=== PATIENT | male | born 1980 | race Caucasian/White ===

== ENCOUNTER 2019-07-29 11:12 | Outpatient (CLI) | payer OTHER, SELFPAY ==
--- NOTE | ~2019-07-29 | XR_ITS ---
XR chest 2V DATE: 07/29/2019 11:25 INDICATION: Acute upper respiratory infection TECHNIQUE: PA and lateral views COMPARISON: None FINDINGS: Normal heart size. No hilar or mediastinal enlargement. No pulmonary infiltrate or consolid ation, pleural effusion or pulmonary vascular congestion or pneumothorax. Included skeletal structures are unremarkable. IMPRESSION: No active cardiopulmonary disease Reviewed, dictated and finalized at location B.
== END 2019-07-29 11:13 | disposition home or self-care (01) ==
PROVIDERS: PCP Family Medicine; Visit Provider Family Medicine
DX: J06.9 Acute upper respiratory infection, unspecified (principal)
CPT/HCPCS: 71046

== ENCOUNTER 2021-05-06 09:16 | Outpatient (CLI) | payer OTHER, SELFPAY ==
--- NOTE | ~2021-05-06 | US_ITS ---
EXAMINATION: US soft tissue head and neck DATE: 05/06/2021 09:46 INDICATION: Cervicalgia TECHNIQUE: Multiple grayscale and Doppler ultrasound images of the region of concern at the right nec k from the submandibular region through the thyroid were obtained. COMPARISON: None FINDINGS: Normal appearance to the right submandibular gland which measures 4.1 x 2.1 x 4.1 cm. Visualized port ion of the right thyroid also appears normal. No pathologically enlarged cervical lymphadenopathy or other abnormal masses or fluid collections identified. IMPRESSION: 1. Normal study. No pathologically enlarged lymphadenopathy or abnormal masses or fluid collections a t the of concern at the right neck and submandibular region. Reviewed, dictated and finalized at location B. [employer] IMPRESSION: 1. Normal study. No pathologically enlarged lymphadenopathy or abnormal masses or fluid collections at the of concern at the right neck and submandibular elizabeth on.
== END 2021-05-06 09:17 | disposition home or self-care (01) ==
LOC: CHSIMG 09:19
PROVIDERS: PCP Family Medicine; Visit Provider Nurse Practitioner Family
DX: M54.2 Cervicalgia (principal); R22.0 Localized swelling, mass and lump, head; R22.1 Localized swelling, mass and lump, neck
CPT/HCPCS: 76536

== ENCOUNTER 2022-01-26 07:44 | Outpatient (CLI) | payer OTHER, SELFPAY ==
--- NOTE | ~2022-01-26 | CT_ITS ---
EXAMINATION: CT abdomen pelvis wo con DATE: 01/26/2022 08:01 INDICATION: Right lower quadrant abdominal pain. Hernia. TECHNIQUE: Computed tomography (CT) of the abdomen and pelvis was performed without intravenous contr ast. The dose-length product was 1211.33 mGy-cm. Automated exposure control and iterative reconstruct ion technique were employed. COMPARISON: None. FINDINGS: Lung bases are unremarkable. Heart size normal. Moderate size hiatal hernia. There is abnor mal thickening of the gastric wall. No significant pleural or pericardial effusion. No significant va scular abnormality. Appendix is mildly prominent measuring up to 10 mm, although there is no signific ant surrounding inflammatory change. There is gas throughout the appendix. The liver, spleen, pancreas, adrenal glands and kidneys are unremarkable. No renal stones or hydronep hrosis. No acute osseous abnormality. No free air or free fluid. No lymphadenopathy. Bladder is unrem arkable. No abnormal pelvic masses or fluid collections. Nonobstructive bowel gas pattern. IMPRESSION: 1. Mild prominence of the appendix measuring 10 mm. No significant surrounding inflammatory change. T his may represent a normal variant, although appendicitis is not excluded. Clinically correlate. 2: Thickening of the gastric wall with moderate size hiatal hernia. Cannot exclude gastritis. Reviewed, dictated and finalized at location B. IMPRESSION: 1. Mild prominence of the appendix measuring 10 mm. No significant surrounding inflammatory change. This may represent a normal variant, although appendicitis is not excluded. Clinically correlate. 2: Thickening of the gastric wall with moderate size hiatal hernia. Cannot exc lude gastritis.
== END 2022-01-26 07:45 | disposition home or self-care (01) ==
LOC: CHSIMG 07:46
PROVIDERS: PCP Family Medicine; Visit Provider Family Medicine
DX: R10.9 Unspecified abdominal pain (principal)
CPT/HCPCS: 74176

== ENCOUNTER 2022-02-23 00:26 | Day surgery (SDC) | payer OTHER, SELFPAY ==
[2022-02-20 08:42] VITALS: BMI 37.0
--- NOTE | 2022-02-20 08:49 | SUR.PREOP ---
Report to the Outpatient Waiting Room, entrance under the green pavilion located off [facility], at time _1130 on date _02/23/22 . Planned Procedure Time: _1330 . Time changes happen often and if your time is changed the preop area will call you the afternoon before. - You and your visitor will be asked to self-screen and do not enter if you have any COVID symptoms. - We encourage only one visitor and NO visitors under age 16 are allowed at this time. Your visitor will receive communication by the phone number that is given day of service. - The patient visitor is requested to social distance or may leave the building when not with patient due to restrictions. - A mask is required within the hospital. Patients may have clear liquids (water, carbonated beverages, clear teas, apple juice) until 3 hours prior to surgery with a maximum of 20 ounces. - No food from midnight until time of surgery - Infants may have breast milk until 4 hours before surgery, formula 6 hours prior to surgery. - Children will be allowed to drink immediately following surgery. If applicable, please bring a bottle or sippy cup to assist with drinking. Juice, water, soda, and popsicles are readily available. For infants on formula, please bring formula the day of surgery. Pacifiers are allowed. Take the following medications with a SIP of water the morning of surgery: _ALPRAZOLAM Medications to discontinue per physician ____N/A Date to take last dose____N/A Please no make-up, nail afghan, hairspray, perfume, deodorant, or body powder the day of surgery. No jewelry (including any body piercings) or valuables the day of surgery, leave them at home. Please take a shower or bath the night before, or the morning of, surgery with an antibacterial soap. Wear comfortable, loose fitting clothing. Children are encouraged to wear pajamas. HIBICLENS SHOWER AM OF SURGERY - Jewelry must be removed prior to entering the operating room. Rings and piercings that are not removed may be cut off. - The hospital will not accept responsibility for valuables. - Please leave all valuables, including medications, at home the day of surgery. If you are going home after surgery, a licensed sanitation truck driver must drive you home. - NO public transportation without another adult. - We recommend that an adult stay with you for 24 hours following discharge. - We also recommend that you do not drive, make important decision, drink alcoholic beverages, or take any drugs that were not prescribed by your health care provider for at least 24 hours after your discharge time. For Pediatric surgeries, we recommend two adults accompany the child home. Follow any additional instructions given to you from your surgeon. If you or anyone in your household have experienced Covid symptoms in the past week, please notify your surgeon or the nurse liaison at the phone number below for possible testing. Telephone instructions given to _CORTEZ KENNEDY and asked if any additional questions and then verbalized understanding. Patient advised to call surgeon office or pre surgery nurse liaison [phone] if any additional questions.
--- NOTE | 2022-02-22 16:13 | WPDANESEPPF ---
Anes - Initial Pre Proc Eval Procedure: Operation Date: 02/23/22 13:30 Proposed Procedures p Laparoscopic Appendectomy - Susan Bangura MD Date/Time: 02/22/22 16:13 Surgeon: Susan Bangura MD Pre Op Diagnosis: chronic appendicitis Patient Data Age: 41 Gender: M Height: 1.85 m Weight: 127.27 kg Allergies Allergy/AdvReac Type Severity Reaction Status Date / Time No Known Allergies Allergy Verified 02/23/22 12:09 Home Medications Medication Instructions Recorded Confirmed Type alprazolam 1 mg tablet 1 mg PO PRN 01/31/22 02/20/22 History esomeprazole magnesium 20 mg 20 mg PO DAILY 01/31/22 02/20/22 History capsule,delayed release (Nexium) valacyclovir 500 mg tablet 500 mg PO EVERY OTHER DAY 01/31/22 02/20/22 History Patient hx anesthesia problems: none Family hx anesthesia problems: none Results Review: All pre-operative results and documents have been reviewed as part of the pre-operative evaluation. [facility] Past Medical History Medical History (Updated 02/22/22 @ 16:14 by Derrick Glover MD) Cigarette nicotine dependence Fever blister MIKE (generalized anxiety disorder) GERD (gastroesophageal reflux disease) Obesity Skull fracture Social History Social History Smoking status: Former smoker Tobacco type: cigarettes Smoking end date: 04/30/19 Additional smoking assessment comments: cigarettes 1ppd x 10 years Alcohol intake: current Drinks per week: 5 Living arrangements: alone Additional living arrangements comments: Single 1 Child. Additional occupation/education comments: [employer] Spiritual care concerns: No Anes - Eval Final PreProcedure Day of Procedure 02/22/22 16:13 Patient weight: obese Heart: regular rate and rhythm Lungs: clear to auscultation and normal air movement Airway: Mallampati scale class II Neurological: alert and oriented Last oral intake: >/= 8 hours ASA classification: II Emergent: no Anesthetic plan: proceed Anesthesia type and monitoring: general ETT Results Review: All pre-operative results and documents have been reviewed as part of the pre-operative evaluation. Informed Consent: The patient's anesthetic plan and its attendant risks and benefits were discussed with the patient/family/POA. Questions were solicited and answers provided to the satisfaction of the patient/family/POA.
[2022-02-23] VITALS (8 sets, daily range): BP systolic 101–154; BP diastolic 61–94; PULSE 40–75; RESP 9–15; TEMP 36.3–36.4; O2SAT 95–100
[2022-02-23] MEDS: LACTATED RINGERS 1,000 ML 30 ML IV CONT ×2 (11:58→15:02)
[2022-02-23] MEDS: KETOROLAC 15 MG/ML VIAL (*BKC) IV PUSH (12:00)
--- NOTE | 2022-02-23 12:04 | WPDHPUPDATE1 ---
History and Physical Update Update Date/Time: 02/23/22 12:05 History and Physical has been reviewed, including an updated exam of the patient. There are NO changes in the patient's condition. Risks, benefits, and alternatives have been discussed and questions answered. Patient agrees to proceed with procedure.
[2022-02-23] MEDS: ceFAZolin 3 GM/D5W 100 ML 100 ML IVPB (14:01)
[2022-02-23] MEDS: metroNIDAZOLE 500 MG/ISO 100ML 500 MG/100 ML BAG 100 MG IVPB (14:17)
[2022-02-23] MEDS: BUPIVACAINE/EPINEPHRINE 0.25% 50 ML VIAL 30 ML INFILTRATE (14:38)
--- NOTE | 2022-02-23 15:08 | W.PM.PROC2 ---
Procedure Note - Detailed Date of Procedure 02/23/22 Pre-op Diagnosis chronic appendicitis Post-op Diagnosis Same Procedure Performed laparoscopic appendectomy Surgeon Susan Bangura MD Anesthesia General Indications 41 y/o M presenting to office with chronic appendicitis. Findings chronic appendicitis no evidence of perforation Description of Procedure The patient was taken to the operating room and placed in the supine position. After adequate induction of general anesthesia, the patient was prepped and draped in the normal sterile fashion. A time-out was then done to verify the patient's identity, as well as the procedure being performed. I began by making a 5 mm incision in the infraumbilical region, through this a Veress needle was placed in the peritoneal cavity. CO2 gas was then insufflated and after adequate pneumoperitoneum was achieved the Veress needle was removed. Then placed a 5 mm Optiview trocar under direct visualization into the peritoneal cavity. I then insufflated through this trocar site and the endoscope was placed into the trocar. Under direct visualization, placed 2 further 5 mm suprapubic port as well as an additional 12 mm port in the left lower abdomen. At this point identified the cecum, I retracted the cecum both medially and superiorly allowing me to expose the appendix. The appendix was noted to be moderately dilated, injected, and inflamed. The appendix was noted to be very adherent to the right lateral sidewall as well as the ileum. I was able to bluntly dissect the appendix from these adhesions. I then was able to locate the base of the appendix with the cecum. I created a window with the [place] dissector between the appendix itself and the mesoappendix. I then transected the mesoappendix with a white vascular staple load x 2. The Endo-SATYA was then reloaded with a blue staple load and I transected the base of the appendix. Once the specimen was completely detached, an endo-pouch was placed into the 12 mm port site and the specimen was removed through the endo-pouch. The appendiceal specimen will be sent to pathology for further review. I then copiously irrigated the right lower quadrant. Hemostasis was noted at both staple lines no other pathology was seen in this area. I then moved the camera to the suprapubic port to check our its port of entry. No iatrogenic injury or other pathology was noted in the upper abdomen. I then closed the 12 mm port site with a Fausto code and 0 Vicryl suture under direct visualization. At this point, the abdomen was desufflated and all ports were removed. All port sites were closed with 4 Monocryl subcuticular suture. Dermabond was placed on all wounds. The patient tolerated the procedure well and was extubated in the operating room postop. He will be sent to the recovery room in stable condition. Estimated Blood Loss 10 Drains No Packing No Pathology Yes Complications No immediate complications Condition Stable Disposition PACU [facility] Billing Surgery - Charge Forward: Surgery Billing
[2022-02-23] MEDS: ONDANSETRON INJ 4 MG/2 ML VIAL IV PUSH (15:26)
[2022-02-23] MEDS: SCOPOLAMINE 1.5 MG PATCH TRANSDERM (15:49)
[2022-02-23] MEDS: HALOPERIDOL LACTATE 5 MG/ML VIAL IV PUSH (15:50)
--- NOTE | 2022-02-23 16:05 | SUR.PHASEII ---
PATIENT DIAPHORETIC, NAUSEATED; DR. JETER CALLED FOR ANTI-EMETICS; BP AND HR LOWER THAN BASELINE; PATIENT'S HOB LOWERED IN RECLINER. COOL COMPRESSES TO FACE/NECK. DR. JETER CALLED AGAIN RE: LOWER BP'S AND LOWER HR'S IN 40'S. PT MORE ALERT NOW, SAYS NAUSEA IS BETTER. BP'S IMPROVING. NO INTERVENTION FOR HR'S IN 40'S PER DR. JETER. PATIENT SITTING UP NOW PER HIS REQUEST; DRINKING WATER AND EATING CRACKERS. DAD AT BEDSIDE, VERY CONCERNED. DAD REASSURED THAT DOCTOR IS AWARE AND THAT PATIENT IS IMPROVING.
[2022-02-23] MEDS: oxyCODONE HCL (*CRX) 5 MG TAB IR PO (17:01)
--- NOTE | 2022-02-23 17:05 | SUR.PHASEII ---
GUILLERMO MELTON NOTIFIED RE: PATIENT'S CURRENT BP'S AND HR'S WHICH ARE IMPROVED BUT SLIGHTLY LOWER THAN PREOP VITAL SIGNS. PATIENT AWAKE, ALERT, DROWSY BUT ABLE TO WALK TO BATHROOM INDEPENDENTLY WITHOUT DIFFICULTY. Ben MELTON OKAY'D PATIENT TO GO HOME.
== END 2022-02-23 17:25 | disposition home or self-care (01) ==
PROVIDERS: PCP Family Medicine; Visit Provider Surgery
PROC: 0DTJ4ZZ Resection of Appendix, Percutaneous Endoscopic Approach (ICD-10-PCS; CPT 44970; principal; 2022-02-23 13:30)
DX: K36 Other appendicitis (principal); K21.9 Gastro-esophageal reflux disease without esophagitis; F41.1 Generalized anxiety disorder; E66.9 Obesity, unspecified; Z68.36 Body mass index [BMI] 36.0-36.9, adult; Z87.891 Personal history of nicotine dependence
CPT/HCPCS: 44970; 88304; A9270; J0330; J0690; J1100; J1630; J1885; J2250; J2405; J2704; J2710; J3010; J7030; J7120

== ENCOUNTER 2022-10-02 01:15 | Day surgery (SDC) | payer OTHER, SELFPAY ==
--- NOTE | 2022-09-27 14:09 | PC.NURSE ---
Report to the Outpatient Waiting Room, entrance under the green pavilion located off [facility], at time _1000_ on date _10/02/22_. Planned Procedure Time: _1200__. Time changes happen often and if your time is changed the preop area will call you the afternoon before. - You and your visitor will be asked to self-screen and do not enter if you have any COVID symptoms. - A mask is optional within the hospital at this time. Patients may have clear liquids (water, carbonated beverages, clear teas, apple juice) until 3 hours prior to surgery with a maximum of 20 ounces. - No food from midnight until time of surgery - Infants may have breast milk until 4 hours before surgery, formula 6 hours prior to surgery. - Children will be allowed to drink immediately following surgery. If applicable, please bring a bottle or sippy cup to assist with drinking. Juice, water, soda, and popsicles are readily available. For infants on formula, please bring formula the day of surgery. Pacifiers are allowed. Take the following medications with a SIP of water the morning of surgery: _no meds _ DO NOT STOP ANY OF YOUR OTHER PRESCRIPTION MEDICATIONS PRIOR TO SURGERY ?EXCEPT THE FOLLOWING Medications to discontinue per physician __vitamins and supplements 3 days prior____ Date to take last dose Please no make-up, nail sao tomean, hairspray, perfume, deodorant, or body powder the day of surgery. No jewelry (including any body piercings) or valuables the day of surgery, leave them at home. Please take a shower or bath the night before, or the morning of, surgery with an antibacterial soap. Wear comfortable, loose fitting clothing. Children are encouraged to wear pajamas. - Jewelry must be removed prior to entering the operating room. Rings and piercings that are not removed may be cut off. - The hospital will not accept responsibility for valuables. - Please leave all valuables, including medications, at home the day of surgery. If you are going home after surgery, a licensed hazardous materials driver must drive you home. - NO public transportation without another adult if you receive anesthesia. - We recommend that an adult stay with you for 24 hours following discharge. - We also recommend that you do not drive, make important decision, drink alcoholic beverages, or take any drugs that were not prescribed by your health care provider for at least 24 hours after your discharge time. For Pediatric surgeries, we recommend two adults accompany the child home. Follow any additional instructions given to you from your surgeon. If you or anyone in your household have experienced Covid symptoms in the past week, please notify your surgeon or the nurse liaison at the phone number below for possible testing. Telephone instructions given to _Patient__and asked if any additional questions and then verbalized understanding. Patient advised to call surgeon office or pre surgery nurse liaison [phone] if any additional questions.
[2022-09-27 14:16] VITALS: BMI 34.3
[2022-10-02] VITALS (7 sets, daily range): BP systolic 120–146; BP diastolic 73–93; PULSE 47–71; RESP 12–16; TEMP 35.9–36.7; O2SAT 98–100
[2022-10-02] MEDS: LACTATED RINGERS 1,000 ML 30 ML IV CONT ×2 (10:15→13:14)
[2022-10-02] MEDS: KETOROLAC 15 MG/ML VIAL (*BKC) IV PUSH (10:16)
[2022-10-02] MEDS: ACETAMINOPHEN 500 MG TABLET 1000 MG PO (10:16)
--- NOTE | 2022-10-02 11:22 | P.PNAN_ITS ---
Anes - Initial Pre Proc Eval Procedure: Operation Date: 10/02/22 12:00 Proposed Procedures p Robotic Assisted Right Inguinal Hernia Repair with Mesh - Susan Bangura MD Date/Time: 10/02/22 11:22 Surgeon: Susan Bangura MD Pre Op Diagnosis: right inguinal hernia Patient Data Age: 42 Gender: M Height: 1.85 m Weight: 119.6 kg Last Vital Signs Temp 35.9 C L 10/02/22 09:44 Pulse 58 L 10/02/22 09:44 Resp 16 10/02/22 09:44 BP 123/90 10/02/22 09:44 Pulse Ox 99 10/02/22 09:44 O2 Del Method Room Air 10/02/22 09:44 Allergies Allergy/AdvReac Type Severity Reaction Status Date / Time No Known Allergies Allergy Verified 09/27/22 14:16 Home Medications Medication Instructions Recorded Confirmed Type alprazolam 1 mg tablet 1 mg PO PRN 01/31/22 09/27/22 History esomeprazole magnesium 20 mg 20 mg PO DAILY 01/31/22 09/27/22 History capsule,delayed release (Nexium) valacyclovir 500 mg tablet 500 mg PO EVERY OTHER DAY 01/31/22 09/27/22 History Patient hx anesthesia problems: none Family hx anesthesia problems: none Results Review: All pre-operative results and documents have been reviewed as part of the pre- operative evaluation. [facility] Past Medical History Medical History Cigarette nicotine dependence Fever blister MIKE (generalized anxiety disorder) GERD (gastroesophageal reflux disease) Obesity Skull fracture Surgical History Surgical History S/P appendectomy lap appy 02/23/22 Social History Social History Smoking packs per day: 0.5 Smoking cigarettes per day: 10.0 Years smoked: 10 Smoking pack-years: 5.00 Smoking status: Former smoker Tobacco type: cigarettes Smoking end date: 04/30/19 Additional smoking assessment comments: cigarettes 1ppd x 10 years Alcohol intake: current Drinks per week: 7 Substance use: never Substance use type: does not use Living arrangements: alone Additional living arrangements comments: Single 1 Child. Occupation/Education: occupation Additional occupation/education comments: [employer] Spiritual care concerns: No Anes - Eval Final PreProcedure Day of Procedure 10/02/22 11:22 Patient weight: obese Heart: regular rate and rhythm Lungs: clear to auscultation Airway: Mallampati scale class II Neurological: alert and oriented Last oral intake: >/= 8 hours ASA classification: II Emergent: no Anesthetic plan: proceed Anesthesia type and monitoring: general ETT and standard monitoring Results Review: All pre-operative results and documents have been reviewed as part of the pre- operative evaluation. Informed Consent: The patient's anesthetic plan and its attendant risks and benefits were discussed with the patient/family/POA. Questions were solicited and answers provided to the satisfaction of the patient/family/POA.
--- NOTE | 2022-10-02 11:36 | WPDHPUPDATE1 ---
History and Physical Update Update Date/Time: 10/02/22 11:36 History and Physical has been reviewed, including an updated exam of the patient. There are NO changes in the patient's condition. Risks, benefits, and alternatives have been discussed and questions answered. Patient agrees to proceed with procedure.
[2022-10-02] MEDS: ceFAZolin 2 GM/D5W 50 ML 2 GM/50 ML BAG IVPB (12:02)
[2022-10-02] MEDS: BUPIVACAINE/EPINEPHRINE 0.5% 50 ML VIAL 30 ML INFILTRATE (12:48)
--- NOTE | 2022-10-02 13:28 | W.PM.PROC2 ---
Procedure Note - Detailed Date of Procedure 10/02/22 Pre-op Diagnosis right inguinal hernia Post-op Diagnosis Same Procedure Performed robotic assisted right inguinal hernia repair with mesh Surgeon Susan Bangura MD Anesthesia General Indications 42-year-old male with progressively worsening right inguinal hernia over the last few months Findings indirect right inguinal hernia Description of Procedure Patient was brought into the operating room and placed in the supine position. After adequate induction of general anesthesia, the patient was prepped and draped in normal sterile fashion. A time-out was then done to verify the patient's identity, as well as the procedure being performed. Began by making a 8 mm incision in the supraumbilical region, a Veress needle was then placed into the peritoneal cavity. CO2 gas was then insufflated and after adequate pneumoperitoneum was achieved, the Veress needle was removed. I then placed an 8 mm trocar through this incision. I then placed the endoscope through this trocar site and under direct visualization placed 2 further 8 mm ports in the right and left mid abdomen. The [employer] robot was then docked to the 3 trocar sites. I then scrubbed out and went to the robotic console. Upon examining the pelvis, it was noted that the patient had a moderate right inguinal hernia. The left side was examined and no hernia defect was noted. I began by making a preperitoneal flap approximately 6 cm superior to the defect. This flap was carried medially past the umbilical ligaments in laterally to the transversalis. It then began dissection of my medial compartment taking this down to the pubic tubercle. I then began the lateral dissection taking this down to the transversalis fascia. Once these compartments were achieved, I began dissection around the cord structures. A moderate indirect hernia was noted at this point. Using careful dissection, was able to reduce indirect hernia sac off the cord structures. Once this was adequately done, I went ahead and placed a large piece of 3D Max mesh into the abdominal cavity. The mesh was carefully positioned, centering the center of the mesh over the indirect defect. Once this was done, was very satisfied with our repair. Using 3-0 Vicryl sutures, I tacked the mesh medially to Teddy's ligament. Two lateral sutures were placed from the mesh to the transversalis fascia. I then closed the peritoneal flap with a running 2.0 V Lock suture. The abdomen was then desufflated, and all ports were removed. All incisions were then closed with the 4.0 monocryl suture. Dermabond was placed on each wound. The patient tolerated the procedure well, was extubated in the operating room postoperatively, and will now be transferred to the recovery room in stable condition. Implants large 3DMax mesh Estimated Blood Loss 5 Drains No Packing No Pathology None sent Complications No immediate complications Condition Stable Disposition PACU [facility] Billing Surgery - Charge Forward: Surgery Billing
[2022-10-02] MEDS: oxyCODONE HCL (*CRX) 5 MG TAB IR PO (14:06)
== END 2022-10-02 14:42 | disposition home or self-care (01) ==
PROVIDERS: PCP Family Medicine; Visit Provider Surgery
PROC: 8E0Y4CZ Robotic Assisted Procedure of Lower Extremity, Percutaneous Endoscopic Approach (ICD-10-PCS; CPT 49650; principal; 2022-10-02 12:00)
DX: K40.90 Unilateral inguinal hernia, without obstruction or gangrene, not specified as recurrent (principal); K21.9 Gastro-esophageal reflux disease without esophagitis; F41.1 Generalized anxiety disorder; E66.9 Obesity, unspecified; Z68.34 Body mass index [BMI] 34.0-34.9, adult; Z87.891 Personal history of nicotine dependence
CPT/HCPCS: 49650; S2900; 36415; 86850; 86900; 86901; A9270; C1781; J0690; J1100; J1885; J2250; J2405; J2704; J2710; J3010; J7120

== ENCOUNTER 2022-12-13 05:53 | Day surgery (SDC) | payer OTHER, SELFPAY ==
[2022-12-01 10:38] VITALS: BMI 35.9
[2022-12-05 13:27] VITALS: BMI 35.4
[2022-12-13 06:59] VITALS: BP 131/89; PULSE 56; RESP 14; TEMP 36.3; O2SAT 100
[2022-12-13] MEDS: LACTATED RINGERS 1,000 ML 150 ML IV CONT (07:09)
--- NOTE | 2022-12-13 07:09 | WPDANESEPPF ---
Anes - Initial Pre Proc Eval Procedure: Operation Date: 12/13/22 08:00 Proposed Procedures p Esophagogastroduodenoscopy - Alessandro Benz DO Date/Time: 12/13/22 07:09 Surgeon: Alessandro Benz DO Pre Op Diagnosis: Gerd Patient Data Age: 42 Gender: M Height: 1.85 m Weight: 121 kg Last Vital Signs Temp 36.3 C L 12/13/22 06:59 Pulse 56 L 12/13/22 06:59 Resp 14 12/13/22 06:59 BP 131/89 12/13/22 06:59 Pulse Ox 100 12/13/22 06:59 O2 Del Method Room Air 12/13/22 06:59 Allergies Allergy/AdvReac Type Severity Reaction Status Date / Time No Known Allergies Allergy Verified 12/13/22 06:56 Home Medications Medication Instructions Recorded Confirmed Type hydrocodone 5 mg-acetaminophen 325 1 tablet PO Q8H PRN Moderate Pain 10/18/22 12/13/22 History mg tablet (Scale Score 5-6) alprazolam 1 mg tablet 1 mg PO BID PRN anxiety #20 tabs 11/29/22 12/13/22 Rx esomeprazole magnesium 20 mg 20 mg PO DAILY #90 caps 11/29/22 12/13/22 Rx capsule,delayed release (Nexium) valacyclovir 500 mg tablet 500 mg PO EVERY OTHER DAY #30 tabs 11/29/22 12/13/22 Rx Patient hx anesthesia problems: none Family hx anesthesia problems: none Results Review: All pre-operative results and documents have been reviewed as part of the pre-operative evaluation. [facility] Past Medical History Medical History Cigarette nicotine dependence Fever blister MIKE (generalized anxiety disorder) GERD (gastroesophageal reflux disease) Obesity Skull fracture Surgical History Surgical History Hx of right inguinal hernia repair Robotic assisted right inguinal hernia repair with mesh 10/02/[address] Bangura S/P appendectomy lap appy 02/23/22 Social History Social History Smoking packs per day: 0.5 Smoking cigarettes per day: 10.0 Years smoked: 10 Smoking pack-years: 5.00 Smoking status: Former smoker Tobacco type: cigarettes Smoking end date: 04/30/19 Additional smoking assessment comments: cigarettes 1ppd x 10 years Alcohol intake: current Drinks per week: 7 Substance use: unknown Substance use type: unknown Lack of Transportation: No Lack of Food: Never True Current Housing: I Have Housing Concerned About Future Housing: No Difficulty Paying Gas/Electric Bills: No Difficulty Paying for Meds: No Currently Unemployed: No Education: High School Diploma/GED Difficulty w/ Childcare or Family Care: No Living arrangements: alone Additional living arrangements comments: Single 1 Child. Occupation/Education: occupation Additional occupation/education comments: [employer] Spiritual care concerns: No Anes - Eval Final PreProcedure Day of Procedure 12/13/22 07:09 Patient weight: obese Heart: regular rate and rhythm Lungs: clear to auscultation Airway: Mallampati scale class II Neurological: alert and oriented Last oral intake: >/= 8 hours ASA classification: III Emergent: no Anesthetic plan: proceed Anesthesia type and monitoring: general GIVS and standard monitoring Results Review: All pre-operative results and documents have been reviewed as part of the pre-operative evaluation. Informed Consent: The patient's anesthetic plan and its attendant risks and benefits were discussed with the patient/family/POA. Questions were solicited and answers provided to the satisfaction of the patient/family/POA.
--- NOTE | 2022-12-13 07:30 | PM.IMHP ---
H&P: HPI History of Present Illness Date/Time: 12/13/22 07:30 Chief Complaint: GERD Narrative: 42 yo man presents for EGD. He reports occasional acid reflux but this has improved with sleeping in a recliner and avoiding eating late at night. He is on Nexium and this does help. He takes Advil for soreness after inguinal hernia repair 8 weeks ago. He only drinks alcohol socially and rarely smokes a cigar. Review of Systems Review of Systems: All systems reviewed & are unremarkable except as noted in HPI and below Constitutional: Constitutional: Denies chills, Denies fever(s), Denies headache(s) and Denies weight loss Eyes: Eyes: Denies change in vision ENT: Denies dizziness, Denies headache(s), Denies neck mass and Denies throat swelling Cardiovascular: Cardiovascular: Denies chest pain, Denies lightheadedness and Denies dyspnea Respiratory: Respiratory: Denies cough, Denies dyspnea and Denies wheezing Gastrointestinal: Gastrointestinal: Denies abdominal pain, Denies change in bowel habits, Denies nausea and Denies vomiting Genitourinary: Genitourinary: Denies hematuria and Denies dysuria Musculoskeletal: Musculoskeletal: Reports as per HPI Integumentary/Breasts: Skin/Breast: Reports as per HPI Neurologic: Denies dizziness and Denies headache(s) Allergic/Immunologic: Allergic/Immunologic: Denies throat swelling and Denies wheezing PMFSH Past Medical History Medical History Cigarette nicotine dependence Fever blister MIKE (generalized anxiety disorder) GERD (gastroesophageal reflux disease) Obesity Skull fracture Surgical History Surgical History Hx of right inguinal hernia repair Robotic assisted right inguinal hernia repair with mesh 10/02/[address] Bangura S/P appendectomy lap appy 02/23/22 Social History Social History Smoking packs per day: 0.5 Smoking cigarettes per day: 10.0 Years smoked: 10 Smoking pack-years: 5.00 Smoking status: Former smoker Tobacco type: cigarettes Smoking end date: 04/30/19 Additional smoking assessment comments: cigarettes 1ppd x 10 years Alcohol intake: current Drinks per week: 7 Substance use: unknown Substance use type: unknown Lack of Transportation: No Lack of Food: Never True Current Housing: I Have Housing Concerned About Future Housing: No Difficulty Paying Gas/Electric Bills: No Difficulty Paying for Meds: No Currently Unemployed: No Education: High School Diploma/GED Difficulty w/ Childcare or Family Care: No Living arrangements: alone Additional living arrangements comments: Single 1 Child. Occupation/Education: occupation Additional occupation/education comments: [employer] Spiritual care concerns: No Meds Home Medications and Allergies Home Medications Medication Instructions Recorded Confirmed Type hydrocodone 5 mg-acetaminophen 325 1 tablet PO Q8H PRN Moderate Pain 10/18/22 12/13/22 History mg tablet (Scale Score 5-6) alprazolam 1 mg tablet 1 mg PO BID PRN anxiety #20 tabs 11/29/22 12/13/22 Rx esomeprazole magnesium 20 mg 20 mg PO DAILY #90 caps 11/29/22 12/13/22 Rx capsule,delayed release (Nexium) valacyclovir 500 mg tablet 500 mg PO EVERY OTHER DAY #30 tabs 11/29/22 12/13/22 Rx Allergies Allergy/AdvReac Type Severity Reaction Status Date / Time No Known Allergies Allergy Verified 12/13/22 06:56 Vital Signs Vital Signs - 24 hr 12/13/22 06:59 Temperature 36.3 C L Pulse Rate 56 L Respiratory Rate 14 Blood Pressure 131/89 Pulse Oximetry 100 Oxygen Delivery Room Air Exam Const: General: no acute distress and alert Orientation/consciousness: patient oriented x3 HENMT: Head: normocephalic and atraumatic Ears: hearing grossly normal bilaterally Face/Nose/Sinus: Normal nares present Mouth: Yes Normal o
--- NOTE | 2022-12-13 07:58 | SUR.OPER ---
Simithicone diluted in sterile water used during procedure.
[2022-12-13 07:59] VITALS: BP 125/71; PULSE 73; RESP 18; O2SAT 98
--- NOTE | 2022-12-13 08:08 | WPDANESPN ---
Anes - Prog Note Post-Op Date/Time: 12/13/22 08:08 Cardiovascular status: normal Respiratory status: normal Airway patency: baseline Mental status: baseline Post-Op hydration status: normal Vital Signs: Last Vital Signs Temp 36.3 C L 12/13/22 06:59 Pulse 56 L 12/13/22 06:59 Resp 14 12/13/22 06:59 BP 131/89 12/13/22 06:59 Pulse Ox 100 12/13/22 06:59 O2 Del Method Room Air 12/13/22 06:59 Pain Score (VAS): 0/10 Patient Feedback: Patient satisfied with anesthetic care.
[2022-12-13 08:09] VITALS: BP 122/84; PULSE 59; RESP 18; O2SAT 100
[2022-12-13 08:19] VITALS: BP 136/72; PULSE 52; RESP 18; O2SAT 99
== END 2022-12-13 08:31 | disposition home or self-care (01) ==
PROVIDERS: PCP Family Medicine; Visit Provider Surgery
PROC: 0DJ08ZZ Inspection of Upper Intestinal Tract, Via Natural or Artificial Opening Endoscopic (ICD-10-PCS; CPT 43235; principal; 2022-12-13 08:00)
DX: K21.9 Gastro-esophageal reflux disease without esophagitis (principal); K44.9 Diaphragmatic hernia without obstruction or gangrene
CPT/HCPCS: 43239

== ENCOUNTER 2024-03-17 16:44 | Outpatient (CLI) | payer OTHER, SELFPAY ==
--- NOTE | ~2024-03-17 | CT_ITS ---
EXAMINATION: CT pelvis wo con DATE: 03/17/2024 17:08 INDICATION: Other specified diseases of anus and rectum. TECHNIQUE: Computed tomography (CT) of the pelvis was performed without intravenous contrast. Automat ed exposure control and iterative reconstruction technique were employed. The dose-length product was 915.12 mGy-cm. COMPARISON: CT abdomen and pelvis 01/26/2022 FINDINGS: There are no dilated loops of bowel. There are changes of appendectomy. The prostate is mil dly enlarged. There are bilateral inguinal hernias containing fat. There are no pathologically enlarg ed lymph nodes. There is no free intraperitoneal fluid. There is mild lumbar spondylosis. IMPRESSION: 1. Normal anus and rectum. Reviewed, dictated and finalized at location [facility] IMPRESSION: 1. Normal anus and rectum.
== END 2024-03-17 16:45 | disposition home or self-care (01) ==
LOC: ANHIMG 16:51
PROVIDERS: PCP Family Medicine; Visit Provider Surgery
DX: K62.89 Other specified diseases of anus and rectum (principal)
CPT/HCPCS: 72192

== ENCOUNTER 2024-12-08 00:40 | Day surgery (SDC) | payer OTHER, SELFPAY ==
[2024-11-21 15:09] VITALS: BMI 34.3
--- OUTSIDE RECORDS SUMMARY | 2024-12-08 00:45 | XMS_ITS | Clinical Summary ---
Author Organization [facility] Address Formerly [facility] [place] [address] Care Team Providers Care Technology Support Analyst Name Role Phone Unavailable Primary Care Provider Unavailabl e Social History Tobacco Use Types Packs/Day Years Used Date Smoking Tobacco: Never Assessed Sex and Gender Information Value Date Recorded Sex Assigned at Not on file Legal Sex Male 5:16 PM CDT Gender Identity Not on file Sexual Orientation Not on file Plan of Treatment Health Maintenance Due Date Last Done Comments Colorectal Cancer Screening Colonoscopy (10 Years) 1979 Annual Physical 08/02/1982 Hepatitis C 08/02/1997 DTaP, Tdap and Td Vaccines ( 1 - Tdap) 08/02/1998 Hepatitis B Vaccines (1 of 3 - 19+ 3-dose series) 08/02/1998 HPV Vaccines (1 - 3-dose SCD M series) 08/02/2006 COVID-19 Vaccine (2023-2 5 season) 2023 Meningococcal B Vaccine Aged Out No l onger eligible based on patient's age to complete this topic Meningococcal Vaccine Aged Out No lidia juanita eligible based on patient's age to complete this topic Pneumococcal Vaccine: Pediat rics (0 to 5 Years) and At-Risk Patients (6 to 49 Years) Aged Out No longer eligible b ased on patient's age to complete this topic RSV Immunizations Under 20 Months Aged Out No longer eligible based on patient's age to complete this topic
[2024-12-08 07:47] VITALS: BP 121/86; PULSE 64; RESP 18; TEMP 36.3; O2SAT 98; BMI 33.0
[2024-12-08] MEDS: LACTATED RINGERS 1,000 ML 150 ML IV CONT (07:58)
--- NOTE | 2024-12-08 08:10 | WPDANESEPPF ---
Anes - Initial Pre Proc Eval Procedure: Operation Date: 12/08/24 09:30 Proposed Procedures p Screening Colonoscopy - Alessandro Benz DO Date/Time: 12/08/24 08:10 Surgeon: Alessandro Benz DO Pre Op Diagnosis: screening for malignant neoplasm of colon Patient Data Age: 44 Gender: M Height: 1.85 m Weight: 113.6 kg Last Vital Signs Temp 36.3 C L 12/08/24 07:47 Pulse 64 12/08/24 07:47 Resp 18 12/08/24 07:47 BP 121/86 12/08/24 07:47 Pulse Ox 98 12/08/24 07:47 O2 Del Method Room Air 12/08/24 07:47 Allergies Allergy/AdvReac Type Severity Reaction Status Date / Time No Known Allergies Allergy Verified 12/08/24 07:45 Home Medications ?Medication ?Instructions ?Recorded ?Confirmed ?Type alprazolam 1 mg tablet 1 mg PO BID PRN anxiety #20 tabs 10/10/24 11/21/24 Rx esomeprazole magnesium 20 mg 20 mg PO DAILY #90 caps 10/10/24 11/21/24 Rx capsule,delayed release (Nexium) valacyclovir 500 mg tablet 500 mg PO .qod 11/21/24 11/21/24 History Patient hx anesthesia problems: none Family hx anesthesia problems: none Results Review: All pre-operative results and documents have been reviewed as part of the pre-operative evaluation. [facility] Past Medical History Medical History Obesity Fever blister Cigarette nicotine dependence Skull fracture MIKE (generalized anxiety disorder) GERD (gastroesophageal reflux disease) Surgical History Surgical History Hx of right inguinal hernia repair Robotic assisted right inguinal hernia repair with mesh 10/02/[address] Bangura S/P appendectomy lap appy 02/23/22 Social History Social History Smoking packs per day: 0.5 Smoking cigarettes per day: 10.0 Years smoked: 10 Smoking pack-years: 5.00 Smoking status: Former smoker Tobacco type: cigarettes Smoking end date: 04/30/19 Additional smoking assessment comments: cigarettes 1ppd x 10 years Alcohol intake: current Drinks per week: 50 Alcohol use details: BEERS Substance use: never Do You Feel Safe in your Home?: Yes Lack of Transportation: No Lack of Food: Never True Current Housing: I Have Housing Concerned About Future Housing: No Difficulty Paying Gas/Electric Bills: No Difficulty Paying for Meds: No Currently Unemployed: No Education: High School Diploma/GED Difficulty w/ Childcare or Family Care: No Living arrangements: alone Additional living arrangements comments: Single 1 Child. Occupation/Education: occupation Additional occupation/education comments: [employer] Spiritual care concerns: No Anes - Eval Final PreProcedure Day of Procedure 12/08/24 08:10 Patient weight: obese Heart: regular rate and rhythm Lungs: clear to auscultation Airway: Mallampati scale class III Neurological: alert and oriented Last oral intake: >/= 8 hours ASA classification: III Emergent: no Anesthetic plan: proceed Anesthesia type and monitoring: general GIVS and standard monitoring Results Review: All pre-operative results and documents have been reviewed as part of the pre-operative evaluation. Informed Consent: The patient's anesthetic plan and its attendant risks and benefits were discussed with the patient/family/POA. Questions were solicited and answers provided to the satisfaction of the patient/family/POA.
--- NOTE | 2024-12-08 09:35 | PM.IMHP ---
H&P: HPI History of Present Illness Date/Time: 12/08/24 09:35 Chief Complaint: screening for colorectal cancer Narrative: this is a 44-year-old man who presents for his 1st colonoscopy. He denies any hematochezia or melena. He denies any family history of colon cancer. Review of Systems Review of Systems: All systems reviewed & are unremarkable except as noted in HPI and below Constitutional: Constitutional: Denies chills, Denies fever(s), Denies headache(s) and Denies weight loss Eyes: Eyes: Denies change in vision ENT: Denies dizziness, Denies headache(s), Denies neck mass and Denies throat swelling Cardiovascular: Cardiovascular: Denies chest pain, Denies lightheadedness and Denies dyspnea Respiratory: Respiratory: Denies cough, Denies dyspnea and Denies wheezing Gastrointestinal: Gastrointestinal: Denies abdominal pain, Denies change in bowel habits, Denies nausea and Denies vomiting Genitourinary: Genitourinary: Denies hematuria and Denies dysuria Musculoskeletal: Musculoskeletal: Reports as per HPI Integumentary/Breasts: Skin/Breast: Reports as per HPI Neurologic: Denies dizziness and Denies headache(s) Allergic/Immunologic: Allergic/Immunologic: Denies throat swelling and Denies wheezing PMFSH Past Medical History Medical History Obesity Fever blister Cigarette nicotine dependence Skull fracture MIKE (generalized anxiety disorder) GERD (gastroesophageal reflux disease) Surgical History Surgical History Hx of right inguinal hernia repair Robotic assisted right inguinal hernia repair with mesh 10/02/[address] Bangura S/P appendectomy lap appy 02/23/22 Social History Social History Smoking packs per day: 0.5 Smoking cigarettes per day: 10.0 Years smoked: 10 Smoking pack-years: 5.00 Smoking status: Former smoker Tobacco type: cigarettes Smoking end date: 04/30/19 Additional smoking assessment comments: cigarettes 1ppd x 10 years Alcohol intake: current Drinks per week: 50 Alcohol use details: BEERS Substance use: never Do You Feel Safe in your Home?: Yes Lack of Transportation: No Lack of Food: Never True Current Housing: I Have Housing Concerned About Future Housing: No Difficulty Paying Gas/Electric Bills: No Difficulty Paying for Meds: No Currently Unemployed: No Education: High School Diploma/GED Difficulty w/ Childcare or Family Care: No Living arrangements: alone Additional living arrangements comments: Single 1 Child. Occupation/Education: occupation Additional occupation/education comments: [employer] Spiritual care concerns: No Meds Home Medications and Allergies Home Medications ?Medication ?Instructions ?Recorded ?Confirmed ?Type alprazolam 1 mg tablet 1 mg PO BID PRN anxiety #20 tabs 10/10/24 11/21/24 Rx esomeprazole magnesium 20 mg 20 mg PO DAILY #90 caps 10/10/24 11/21/24 Rx capsule,delayed release (Nexium) valacyclovir 500 mg tablet 500 mg PO .qod 11/21/24 11/21/24 History Allergies Allergy/AdvReac Type Severity Reaction Status Date / Time No Known Allergies Allergy Verified 12/08/24 07:45 Vital Signs Vital Signs - 24 hr 12/08/24 07:47 Temperature 97.3 F L Pulse Rate 64 Respiratory Rate 18 Blood Pressure 121/86 Pulse Oximetry 98 Oxygen Delivery Room Air Exam Const: General: no acute distress and alert Orientation/consciousness: patient oriented x3 HENMT: Head: normocephalic and atraumatic Ears: hearing grossly normal bilaterally Face/Nose/Sinus: Normal nares present Mouth: Yes Normal oral and palatal mucosa present Eyes: Periorbital: periorbital findings normal Sclera: sclerae normal EOM: EOMs intact bilaterally Neck: Neck: normal visual inspection, no lymphadenopathy and trachea midline Chest: Chest palpation & inspection: normal inspection of the chest Resp: Effort & Inspection: normal respiratory effort Auscultation: clear to auscultation bilaterally Cardio: Jugular venous distension: no JVD Rate: regular rate Rhythm: regular rhythm Heart sounds: S1 normal heart sound present and S2 normal heart sound present Peripheral pulses: Peripheral pulses 2+ throughout GI: Inspection: normal to inspection GI Palp: Yes Soft to palpation, No Tenderness to palpation present (GI), No Guarding due to palpation present (GI) and No Rebound tenderness present Percussion: Yes normal to percussion Auscultation: normal bowel sounds : General: Yes no CVA tenderness Back/Spine/Pelvis: Back: no CVA tenderness Neuro: General: patient oriented x3, no focal motor deficits and CN's II-XI intact bilaterally Cognition (Neuro): normal cognition Speech: normal speech Motor exam (neuro): 5/5 motor strength present throughout Extrem: General: capillary refill normal and no clubbing, cyanosis or edema Assessment and Plan Assessment and plan (1) Encounter for colorectal cancer screening: Code(s): Z12.11 - Encounter for screening for malignant neoplasm of colon; Z12.12 - Encounter for screening for malignant neoplasm of rectum Status: Acute Assessment and Plan: I have recommended colonoscopy. I have discussed the procedure, risks, benefits, and alternatives. Questions were answered. Patient is agreeable to proceed.
[2024-12-08 10:11] VITALS: BP 108/80; PULSE 71; RESP 17; O2SAT 100
[2024-12-08 10:20] VITALS: BP 117/77; PULSE 77; RESP 18; O2SAT 100
[2024-12-08 10:30] VITALS: BP 137/80; PULSE 80; RESP 18; O2SAT 100
== END 2024-12-08 10:32 | disposition home or self-care (01) ==
PROVIDERS: PCP Family Medicine; Visit Provider Surgery
PROC: 0DJD8ZZ Inspection of Lower Intestinal Tract, Via Natural or Artificial Opening Endoscopic (ICD-10-PCS; CPT 45378; principal; 2024-12-08 09:30)
DX: Z12.11 Encounter for screening for malignant neoplasm of colon (principal); K21.9 Gastro-esophageal reflux disease without esophagitis; F41.9 Anxiety disorder, unspecified; E66.9 Obesity, unspecified; Z68.33 Body mass index [BMI] 33.0-33.9, adult; Z98.890 Other specified postprocedural states; Z87.891 Personal history of nicotine dependence
CPT/HCPCS: 45378; J2704; J7120